=== PATIENT | female | born 1980 | race Native Hawaiian/Other Pacific Islander ===

== ENCOUNTER 2017-01-05 06:42 | Day surgery (SDC) | payer OTHER ==
[2016-12-27 09:22] VITALS: BMI 36.1
[2017-01-05] MEDS ORDERED: Midazolam 2 MG/2 ML VIAL ONE (07:46)
[2017-01-05] MEDS ORDERED: Propofol 10 mg/ml Inj (20 ML) ONE ×2 (07:46→08:12)
[2017-01-05] MEDS ORDERED: cefOXitin IV 2 gm in Dextrose 50 ML IVPB ONE (08:11)
[2017-01-05] MEDS ORDERED: Phenylephrine 10 mg/ml Inj ONE (08:16)
[2017-01-05] MEDS ORDERED: ePHEDrine 50 mg/ml Inj ONE (08:16)
[2017-01-05] MEDS ORDERED: HYDROmorphone 0.5 mg/0.5 ml ISec IVP PRN (08:42)
[2017-01-05] MEDS ORDERED: Lactated Ringer's 1,000 ML IV SCH (08:45)
--- NOTE | 2017-01-05 08:45 | PCM.SURG1 ---
Surgeon's Initial Post Op Note - Surgeon's Notes Surgeon: dr parks Feed Blender: none Type of Anesthesia: General LMA Anesthesia Administered By: dr herrmann Pre-Operative Diagnosis: 36yr with menometorrhagia/fibroid uterus Operative Findings: see the op report Post-Operative Diagnosis: see the op report Operation Performed: myosure/d &c, hysterscopy Specimen/Specimens Removed: ecc. emc. polyp Estimated Blood Loss: EBL {In ML}: 20 Drains Used: No Drains Post-Op Condition: Good Date of Surgery/Procedure: 01/05/17 Time of Surgery/Procedure: 08:40
[2017-01-05 09:09] VITALS: O2SAT 100
[2017-01-05 10:23] VITALS: RESP 12
[2017-01-05 12:15] VITALS: TEMP 97.3
[2017-01-05 12:17] VITALS: BP 125/69; PULSE 73
--- NOTE | 2017-01-08 09:12 | OP ---
PROCEDURE DATE: 01/05/2017 PREOPERATIVE DIAGNOSES: A 36-year-old 3, para 3 with menorrhagia, fibroid uterus. POSTOPERATIVE DIAGNOSIS: A 36-year-old 3, para 3 with menorrhagia, fibroid uterus, along wit h endometrial polyps. SURGEON: Ludwin Avila MD CARDROOM SUPERVISOR SURGEON: None. PROCEDURES PERFORMED: Dilation and curretage, hysteroscopy and MyoSure ____ procedure. COMPLICATIONS: None. ANESTHESIA: General anesthesia. ANESTHESIOLOGIST: Dr. Dos Santos. ESTIMATED BLOOD LOSS: 10 mL. DEFICIT: ____. DESCRIPTION OF PROCEDURE: After informed consent was obtained, the patient was brought to the operati ng room, placed on the table where general anesthesia was given. When anesthesia was found to be iliana quate, she was prepped and draped in normal sterile fashion. Examination found the uterus to be abou t 8 weeks' size. No palpable adnexal masses ____. The anterior lip of the cervix was grasped with t he tenaculum. Gentle dilatation of the cervix was done, then the hysteroscope was introduced, found the polyp on the posterior wall of the uterus which was about 2 cm. Pictures were taken. Decision w as to use the MyoSure. The MyoSure was used and the polyp was removed; it was sent to pathology. A fter that, the MyoSure was removed and then sharp curretage from all the lake of the uterus was done . It was sent to pathology. ECC was sent to pathology. Then, the hysteroscope was introduced again and no polyp was found. Then after that tenaculum was taken out. The deficit was ____ mL. The pat ient tolerated the procedure well. Laps and instruments correct x 2. Ludwin Avila MD cc: [id number] TT: 01/05/2017 10:47:27 juan
== END 2017-01-05 11:40 | disposition home or self-care (01) ==
LOC: C.SDS 06:42
PROVIDERS: ATTEND Obstetrics & Gynecology
DX: D25.9 Leiomyoma of uterus, unspecified (principal); N92.0 Excessive and frequent menstruation with regular cycle; N84.0 Polyp of corpus uteri
CPT/HCPCS: 58558; 82948; 88305; J0694; J1170; J1885; J2001; J2250; J2370; J2405; J2704; J3010